=== PATIENT | male | born 1955 | race Caucasian/White ===

== ENCOUNTER 2020-02-02 20:22 | Emergency (ER) | payer BC ==
[~2020-02-02] VITALS: Ht 167.6 cm; Wt 65.8 kg
[2020-02-02 20:22] VITALS: BP 175/110
== END 2020-02-02 20:55 | disposition home or self-care (01) ==
LOC: ER 20:30
DX: I10 Essential (primary) hypertension (principal); Z76.0 Encounter for issue of repeat prescription